=== PATIENT | male | born 1995 | race Caucasian/White ===

== ENCOUNTER 2017-11-11 19:37 | Inpatient (IN) ==
[2017-11-11] MEDS ORDERED: Naloxone 0.4 MG/ML INJ IVP PRN (22:27)
[2017-11-11] MEDS ORDERED: Acetaminophen 325 MG TABLET PO PRN (22:27)
--- NOTE | 2017-11-11 22:32 | Internal Med History&Physical ---
Date of Encounter: 11/11/17 Time of Encounter: 22:30 Internal Medicine - H&P: HPI Chief complaint: Low hemoglobin Admitted From: Direct Admit Plans for Post Hospital Care: Home History of present illness: Mr. Duncan is a 22 year old male with history of bipolar disorder sent from [facility] with hemoglobin of 5.1 on 2 sets of blood work that were done today. He was getting work up by his PCP to get lithium levels and had a CBC done with it which showed the low hgb. Patient has no complaints of bleeding. Has no previous labs to compare to. He does report that he has been weak and his mother has noticed that he is easily fatigued. Denies fever, chills , nausea, vomiting, headache, blurry vision, chest pain, shortness breath, abdominal pain, diarrhea, constipation, urinary symptoms, or neurological symptoms Past Med Surg Social Fam HX - Past Medical History Medical history: no medical history Psychiatric history: anxiety, depression - Past Surgical History Surgical History: no surgical history - Social History Smoking Status: Never smoker Smokeless Tobacco Status: No Alcohol use: none Drug use: none - Family History Mother Living Status: Still Living Hx Family Cardiac Disorders: No Hx Family Respiratory Disorders: No Hx Family Cancer: No Hx Family GI Disorders: No Hx Family Genitourinary Disorders: No Hx Family Endocrine Disorder: No Hx Family Musculoskeletal Disorders: No Hx Family Neuromuscular Disorders: No Hx Family Neurologic Disorders: No Hx Family HEENT Disorders: No Hx Family Autoimmune Disorders: No Hx Family Reproductive Disorders: No Hx Family Psychosocial Disorders: No Hx Family Medical Disorders: No Father Living Status: Still Living Hx Family Cardiac Disorders: No Hx Family Respiratory Disorders: No Hx Family Cancer: No Hx Family GI Disorders: No Hx Family Genitourinary Disorders: No Hx Family Endocrine Disorder: No Hx Family Musculoskeletal Disorders: No Hx Family Neuromuscular Disorders: No Hx Family Neurologic Disorders: No Hx Family HEENT Disorders: No Hx Family Autoimmune Disorders: No Hx Family Reproductive Disorders: No Hx Family Psychosocial Disorders: No Hx Family Medical Disorders: No Internal Medicine - H&P: Meds [place] Carbonate 300 mg PO BID 11/11/17 [History] Quetiapine Fumarate [SEROquel] 100 mg PO HS 11/11/17 [History] Wellbutrin Xl 150 mg PO DAILY 11/11/17 [History] 3 Allergy/AdvReac Type Severity Reaction Status Date / Time No Known Allergies Allergy Verified 11/11/17 17:24 All Systems PM: A 10-system review of systems was performed and is negative for pertinent findings except as documented above in the HPI. Review of systems: All systems reviewed are negative except for as mentioned above - Constitutional Exam: GEN: NAD HEENT: AT, NC, No cyanosis, oral mucosa is moist, No JVD Lymphatics: No lymphadenoapthy Eyes: Extrocular muscles intact, anicteric CVS:RRR. S1, S2, No m/r/g RESP: CTAB ABD: Soft, NT, ND, +BS EXT: No edema, No rashes, 2+ DP NEURO: Nonfocal, CN II-XII intact, No focal motor or sensory deficits Psych: Cooperative, Not anxious or depressed - Assessment and plan (1) Anemia Current Visit: No Status: Acute Assessment and plan: Microcytic anemia likely iron deficiency. We will check iron studies including iron levels, ferritin, B12, folate, haptoglobin, LDH levels. We will transfuse 2 units now PRBCs. Will likely need IV iron while admitted here. No need to repeat blood work here as he has had 2 sets of blood work earlier in the day that were consistent with hemoglobin less than 6. We will check PT and INR as those were not checked. He has normal platelets. FOBT was negative. He may eventually need to have a colonoscopy +/- EGD but this can be done in the outpatient setting. Patient is hemodynamically stable. Qualifiers: Anemia type: unspecified type Qualified Code(s): D64.9 - Anemia, unspecified (2) Bipolar disorder Current Visit: Yes Status: Acute Assessment and plan: Resume home psych meds Qualifiers: Active/Remission status: currently active Current bipolar episode type: mixed Current episode severity: unspecified Qualified Code(s): F31.60 - Bipolar disorder, current episode mixed, unspecified (3) DVT prophylaxis Current Visit: Yes Status: Acute Assessment and plan: SCDs - Time Spent With Patient Total time spent is greater than 50% in coordination of care (as documented) at patient's floor/unit and/or counseling patient:
[2017-11-11 22:44] LABS: Prothrombin Time 11.2 Seconds (9.4-12.1)
[2017-11-11 22:58] LABS: Ferritin < 8 ng/ml (20-250); Iron < 10 mcg/dL (65-175); Lactate Dehydrogenase 125 Units/L (140-271); Transferrin 269 mg/dL (203-362)
[2017-11-11 23:23] LABS: Vitamin B12 884 pg/mL (250-1100)
[2017-11-11 23:29] LABS: Folate > 22.3 ng/mL (3.0-16.0)
[2017-11-11] MEDS ORDERED: 0.9 % Sodium Chloride 250 ML ONE (23:38)
[2017-11-12] MEDS ORDERED: Iron Sucrose Complex 400 MG in 0.9 % Sodium Chloride 250 ML IVPB ONE (00:35)
[2017-11-12 06:37] LABS: Basophils % 0.7 %; Eosinophils # 0.1 K/mcL (0.0-0.6); Eosinophils % 1.7 %; Hematocrit 21.6 % (37.5-50.1); Immature Granulocytes % 0.4 % (0-4); Lymphocytes # 1.2 K/mcL (0.6-4.6); Lymphocytes % 21.6 %; Mean Corpuscular HGB Conc 27.8 g/dL (31.6-35.5); Mean Corpuscular Hemoglobin 17.6 pg (28.0-33.3); Mean Corpuscular Volume 63.5 fL (83.0-100.0); Mean Platelet Volume 12.1 fL (9.4-12.4); Monocytes # 0.4 K/mcL (0.0-1.3); Monocytes % 6.9 %; Neutrophils # 3.7 K/mcL (1.6-8.9); Platelet Count 244 K/mcL (140-400); Red Cell Distribution Width 18.2 % (11.5-14.5); Segmented Neutrophils % 68.7 %
[2017-11-12 06:52] LABS: BUN/Creatinine Ratio 12 (6-26); Blood Urea Nitrogen 13 mg/dL (6-20); Carbon Dioxide 25 mEq/L (23-29); Chloride 111 mEq/L (98-107); Glucose 109 mg/dL (70-105); Magnesium 2.2 mg/dL (1.6-2.6); Osmolality,Calculated 295 (280-300); Potassium 4.5 mEq/L (3.5-5.1); Sodium 142 mEq/L (136-145); eGFR For African Americans > 60 (> 60); eGFR For Non-African Americans > 60 (> 60)
[2017-11-12 07:12] LABS: Anisocytosis 2+ (Not Present)
[2017-11-12 07:13] LABS: Hypochromasia Present (Not Present); Microcytosis Present (Not Present); Platelet Estimate Normal (Normal)
[2017-11-12] MEDS ORDERED: 0.9 % Sodium Chloride 250 ML ONE (08:30)
[2017-11-12] MEDS: Lithium Carbonate 300 MG CAPSULE PO SCH ×2 (08:52→20:16)
[2017-11-12] MEDS: BuPROPion XL (24 HR) 150 MG TABLET PO SCH (08:52)
[2017-11-12 13:26] LABS: Hematocrit 26.6 % (37.5-50.1)
[2017-11-12 13:27] LABS: Hemoglobin 7.6 g/dL (12.9-16.9)
--- NOTE | 2017-11-12 14:24 | Internal Med Progress Note ---
Date of Encounter: 11/12/17 Time of Encounter: 09:25 - Assessment and plan (1) Anemia Current Visit: Yes Status: Acute Assessment and plan: Acute iron deficiency anemia. Initial Hg 6.0. Pt transfused with 2 units packed red blood cells. Hemoglobin rises to 7.6. Iron < 10, % sat not performed, Ferritin < 8. He should also received iron sucrose 400 mg IV 1 Will monitor overnight, and if patient remains stable will be discharged in the morning. Patient reports he normally eats a very healthy diet, no history of anemia in the past. Recommend pt follow with Heme/Onc after discharge for continued evaluation. Qualifiers: Anemia type: unspecified type Qualified Code(s): D64.9 - Anemia, unspecified (2) DVT prophylaxis Current Visit: Yes Status: Acute Assessment and plan: SCDs. Pt is ambulatory. (3) Bipolar disorder Current Visit: Yes Status: Acute Assessment and plan: Continue Seroquel, lithium, and Wellbutrin. Pt is stable. Qualifiers: Active/Remission status: currently active Current bipolar episode type: mixed Current episode severity: unspecified Qualified Code(s): F31.60 - Bipolar disorder, current episode mixed, unspecified - Time Spent With Patient Total time spent is greater than 50% in coordination of care (as documented) at patient's floor/unit and/or counseling patient: - Subjective Interval history: Pt was seen and assessed at bedside at 0925 a.m. He is alert, awake, pleasant. He denies abdominal pain, n/v/d. He denies headache and states that he has been fatigued and SOB the last week or so. He reports "I knew something was wrong with my belly for the last year." Pt reports that his PCP recommended that he not consume gluten and he reports that he does not, but he is eating a sandwich in the room during my exam. - Constitutional Vitals: Temp Pulse Resp BP Pulse Ox 98.1 F 79 15 128/50 97 11/12/17 11:39 11/12/17 11:39 11/12/17 11:39 11/12/17 11:39 11/12/17 11:39 General appearance: Present: cooperative, A&O X 3, pleasant, no acute distress, answers questions appropriately - Head Head exam: Present: atraumatic, normal inspection, normocephalic - Eye Eye exam: Present: normal appearance, conjuntiva pink, sclera anicteric - Neck Neck exam general surgery: Present: supple, trachea midline. Absent: lymphadenopathy - Respiratory Respiratory exam: Present: CTAB. Absent: accessory muscle use, rales, rhonchi, wheezes - Cardiovascular Cardiovascular exam: Present: RRR, +S1, +S2. Absent: diastolic murmur, gallop, rubs, systolic murmur - GI/Abdominal GI/Abdominal exam: Present: normal bowel sounds, soft. Absent: distended, hepatomegaly, tenderness - Extremities Exam Extremities exam: Present: normal capillary refill, normal inspection, warm, radial pulses palpable and symmetrical. Absent: calf tenderness, cyanotic, pedal edema, tenderness - Neurological Exam Neurological exam: Present: alert, oriented X3, no focal deficits. Absent: facial droop, speech deficit - Skin Skin exam: Present: dry, intact, normal color, warm. Absent: rash Internal Medicine: Result - Labs CBC & Chem 7: 11/12/17 13:06 11/12/17 06:10 Labs: Short CBC 11/12/17 11/12/17 Range/Units 06:10 13:06 WBC 5.4 (4.3-11.1) K/mcL Hgb 6.0 L* 7.6 L D (12.9-16.9) g/dL Hct 21.6 L 26.6 L (37.5-50.1) % Plt Count 244 (140-400) K/mcL Neutrophils # 3.7 (1.6-8.9) K/mcL BMP 11/12/17 06:10 Sodium 142 Potassium 4.5 Chloride 111 H Carbon Dioxide 25 BUN 13 Creatinine 1.07 Glucose 109 H Calcium 9.0 - ABG Interpretation ABG results: PT/INR, D-dimer PT 11.2 Seconds (9.4-12.1) 11/11/17 22:26 Consult Discharge Plan - Plan Referrals: Elvi Vazquez [Primary Care Provider] -
[2017-11-12 18:58] LABS: Hematocrit 26.9 % (37.5-50.1); Hemoglobin 7.7 g/dL (12.9-16.9)
[2017-11-13 01:23] LABS: Mean Corpuscular Volume 65.2 fL (83.0-100.0)
[2017-11-13 01:24] LABS: Hematocrit 25.3 % (37.5-50.1); Hemoglobin 7.4 g/dL (12.9-16.9); Mean Corpuscular HGB Conc 29.2 g/dL (31.6-35.5); Mean Corpuscular Hemoglobin 19.1 pg (28.0-33.3); Neutrophils # 4.9 K/mcL (1.6-8.9); Platelet Count 245 K/mcL (140-400); Red Blood Count 3.88 M/mcL (4.19-5.50); Red Cell Distribution Width 20.6 % (11.5-14.5)
[2017-11-13 01:41] LABS: BUN/Creatinine Ratio 13 (6-26); Blood Urea Nitrogen 14 mg/dL (6-20); Calcium 9.2 mg/dL (8.6-10.3); Carbon Dioxide 25 mEq/L (23-29); Chloride 109 mEq/L (98-107); Glucose 109 mg/dL (70-105); Osmolality,Calculated 291 (280-300); Potassium 3.8 mEq/L (3.5-5.1); Sodium 140 mEq/L (136-145); eGFR For African Americans > 60 (> 60); eGFR For Non-African Americans > 60 (> 60)
[2017-11-13 01:56] LABS: Eosinophils # 0.3 K/mcL (0.0-0.6); Monocytes # 0.5 K/mcL (0.0-1.3)
[2017-11-13 01:58] LABS: Anisocytosis 2+ (Not Present); Hypochromasia Present (Not Present); Microcytosis Present (Not Present); Platelet Estimate Normal (Normal); Poikilocytosis 1+ (Not Present); Polychromasia 1+ (Not Present)
[2017-11-13 06:38] LABS: Hemoglobin 7.8 g/dL (12.9-16.9)
[2017-11-13 06:40] LABS: Hematocrit 26.7 % (37.5-50.1)
[2017-11-13] MEDS: Lithium Carbonate 300 MG CAPSULE PO SCH ×2 (08:37→21:24)
[2017-11-13] MEDS: BuPROPion XL (24 HR) 150 MG TABLET PO SCH (08:37)
[2017-11-13] MEDS ORDERED: 0.9 % Sodium Chloride 250 ML ONE ×2 (09:22→11:58)
--- NOTE | 2017-11-13 12:37 | Internal Med Progress Note ---
Date of Encounter: 11/13/17 Time of Encounter: 09:25 - Assessment and plan (1) Anemia Current Visit: Yes Status: Acute Assessment and plan: Hemoglobin 7.6. Transfuse 2 units PRBCs today. Consulted Heme/Onc, will see pt. I appreciate their recommendation and consultation. Heme/onc recommended GI consultation. GI will see pt tomorrow and discuss EGD and colonoscopy. Continue to monitor H & H. Qualifiers: Anemia type: unspecified type Qualified Code(s): D64.9 - Anemia, unspecified (2) Bipolar disorder Current Visit: Yes Status: Acute Assessment and plan: Chronic. Stable. Continue Seroquel, lithium, and Wellbutrin. Qualifiers: Active/Remission status: currently active Current bipolar episode type: mixed Current episode severity: unspecified Qualified Code(s): F31.60 - Bipolar disorder, current episode mixed, unspecified (3) DVT prophylaxis Current Visit: Yes Status: Acute Assessment and plan: SCDs ordered. Pt is ambulatory in the room. - Time Spent With Patient Total time spent is greater than 50% in coordination of care (as documented) at patient's floor/unit and/or counseling patient: less than 15 minutes - Subjective Interval history: Pt was seen and assessed at bedside at 0925 a.m. He is alert, awake, pleasant. He continues to deny nausea, vomiting, diarrhea. Denies headache, blurred vision , chest pain, or SOB. Mom at bedside, questions answered. - Constitutional Vitals: Temp Pulse Resp BP Pulse Ox 98.6 F 68 16 120/54 99 11/13/17 12:19 11/13/17 12:19 11/13/17 12:19 11/13/17 12:19 11/13/17 12:19 General appearance: Present: cooperative, A&O X 3, pleasant, no acute distress, answers questions appropriately - Head Head exam: Present: atraumatic, normal inspection, normocephalic - Eye Eye exam: Present: normal appearance, conjuntiva pink, sclera anicteric - Neck Neck exam general surgery: Present: normal inspection, supple, trachea midline. Absent: lymphadenopathy, tenderness - Respiratory Respiratory exam: Present: CTAB. Absent: accessory muscle use, chest wall tenderness, decreased breath sounds, rales, respiratory distress, rhonchi, wheezes - Cardiovascular Cardiovascular exam: Present: RRR, +S1, +S2. Absent: diastolic murmur, gallop, rubs, systolic murmur - GI/Abdominal GI/Abdominal exam: Present: normal bowel sounds, soft. Absent: distended, hepatomegaly, tenderness - Extremities Exam Extremities exam: Present: normal capillary refill, normal inspection, warm, radial pulses palpable and symmetrical. Absent: calf tenderness, cyanotic, pedal edema, tenderness - Neurological Exam Neurological exam: Present: alert, oriented X3, no focal deficits. Absent: facial droop, speech deficit - Skin Skin exam: Present: dry, intact, normal color, warm. Absent: rash Internal Medicine: Result - Labs CBC & Chem 7: 11/13/17 06:26 11/13/17 00:25 Labs: Short CBC 11/12/17 11/12/17 11/13/17 Range/Units 13:06 18:39 00:25 WBC 7.7 (4.3-11.1) K/mcL Hgb 7.6 L D 7.7 L 7.4 L (12.9-16.9) g/dL Hct 26.6 L 26.9 L 25.3 L (37.5-50.1) % Plt Count 245 (140-400) K/mcL Neutrophils # 4.9 (1.6-8.9) K/mcL 11/13/17 Range/Units 06:26 WBC (4.3-11.1) K/mcL Hgb 7.8 L (12.9-16.9) g/dL Hct 26.7 L (37.5-50.1) % Plt Count (140-400) K/mcL Neutrophils # (1.6-8.9) K/mcL BMP 11/13/17 00:25 Sodium 140 Potassium 3.8 Chloride 109 H Carbon Dioxide 25 BUN 14 Creatinine 1.10 Glucose 109 H Calcium 9.2 - ABG Interpretation ABG results: PT/INR, D-dimer PT 11.2 Seconds (9.4-12.1) 11/11/17 22:26 Consult Discharge Plan - Plan Referrals: Elvi Vazquez [Primary Care Provider] -
[2017-11-13] MEDS ORDERED: SODIUM CHLORIDE/NAHCO3/KCL/PEG 4,000 ML SOLN.RECON PO ONE (17:00)
--- NOTE | 2017-11-14 09:53 | Oncology Inp Consult Note ---
Date of Encounter: 11/14/17 Time of Encounter: 09:51 Assessment and Plan (1) Anemia Status: Acute Assessment and plan: Iron deficiency Anemia, etiology unclear. S/p 4 units PRBC and 400 mg venofer. EGD and colonoscopy with benign findings. Pathology pending. GI recommending capsule endoscopy. Hgb stable at 10 today. Microcytic and Hypochromic on presentation, consistent with DALE. B12 and folate are replete. LDH low and haptoglobin normal. Tissue transglutaminase Atb, IgA ordered to screen for celiac disease, results pending. No sign of acute blood loss, hgb stable, patient planned for discharge today with further follow up on outpatient basis. Patient's mother was given an appointment card with f/u with Dr. Duncan with further laboratory monitoring and future iron infusions if needed. She understands s/s of bleeding to watch for and to present to ER with acute bleeding. She is to call the office with any further questions or concerns in meantime. The above plan was discussed with patient and patients parents at bedside in detail, verbalized understanding. Qualifiers: Anemia type: iron deficiency Iron deficiency anemia type: other iron deficiency Qualified Code(s): D50.8 - Other iron deficiency anemias - Data of Consult Patient: new to practice Consult date: 11/14/17 Requesting Physician: Brian Finn CNP Primary Care Provider: Elvi Vazquez - Consult Narrative Reason for consult: DALE History of present illness: Mr. Duncan is a 22 year old male with pas medical history significant for bipolar disorder, presented to [facility] on 11/11/2017 with hemoglobin of 5.1, discovered on routine lab work while checking patients lithium levels. He was also found to be severely iron deficient. He has received a total of 4 units PRBC and 400 mg venofer during his stay. Patient and patients mother report that patient has been noticeably weak and fatigued recently. Denies any s/s of recent bleeding such as hematochezia, hematemesis or melena. Patients mother does report a history of GI symptoms described as IBS like symptoms, for which patient has been trying to cut down on gluten intake believing that this has an association to his symptoms. Stool occult blood negative. EGD revealed chronic gastritis, pathology from several biopsies pending. Colonoscopy revealed internal hemorrhoids. Past Med Surg Social Fam HX - Past Medical History Medical history: no medical history Psychiatric history: anxiety, depression - Past Surgical History Surgical History: no surgical history - Social History Smoking Status: Never smoker Smokeless Tobacco Status: No Alcohol use: none Drug use: none - Family History Mother Living Status: Still Living Hx Family Cardiac Disorders: No Hx Family Respiratory Disorders: No Hx Family Cancer: No Hx Family GI Disorders: No Hx Family Genitourinary Disorders: No Hx Family Endocrine Disorder: No Hx Family Musculoskeletal Disorders: No Hx Family Neuromuscular Disorders: No Hx Family Neurologic Disorders: No Hx Family HEENT Disorders: No Hx Family Autoimmune Disorders: No Hx Family Reproductive Disorders: No Hx Family Psychosocial Disorders: No Hx Family Medical Disorders: No Father Living Status: Still Living Hx Family Cardiac Disorders: No Hx Family Respiratory Disorders: No Hx Family Cancer: No Hx Family GI Disorders: No Hx Family Genitourinary Disorders: No Hx Family Endocrine Disorder: No Hx Family Musculoskeletal Disorders: No Hx Family Neuromuscular Disorders: No Hx Family Neurologic Disorders: No Hx Family HEENT Disorders: No Hx Family Autoimmune Disorders: No Hx Family Reproductive Disorders: No Hx Family Psychosocial Disorders: No Hx Family Medical Disorders: No Medications and Allergies BuPROPion XL (24 HR) [Wellbutrin Xl] 150 mg PO DAILY 11/11/17 [History] [place] Carbonate 300 mg PO BID 11/11/17 [History] Quetiapine Fumarate [Seroquel] 100 mg PO HS 11/11/17 [History] Ferrous Sulfate 324 mg PO BID #60 tablet.dr 11/14/17 [Rx] Omeprazole [PriLOSEC] 40 mg PO DAILY #30 cap 11/14/17 [Rx] 3 Allergy/AdvReac Type Severity Reaction Status Date / Time No Known Allergies Allergy Verified 11/12/17 14:02 Constitutional: Present: fatigue, weakness. Absent: anorexia, chills, fever(s) , weight loss Eyes: Absent: change in vision Nose, mouth and throat: Absent: dysphagia Cardiovascular: Absent: chest pain, irregular heart rhythm Respiratory: Absent: cough, dyspnea, hemoptysis Gastrointestinal: Present: as per HPI. Absent: change in bowel habits, hematemesis, hematochezia, melena, nausea, vomiting Additional comments: denies dysuria of hematuria Musculoskeletal: Absent: abnormal gait, numbness, tingling Integumentary: Absent: wounds Neurological: Absent: focal weakness, frequent falls Psychiatric: Present: as per HPI Hematologic/Lymphatic: Present: as per HPI Oncology - Exam - Constitutional Vitals: Temp Pulse Resp BP Pulse Ox 98.5 F 63 18 123/72 100 11/14/17 07:02 11/14/17 07:02 11/14/17 07:02 11/14/17 07:02 11/14/17 07:02 General appearance: cooperative, no acute distress, no febrile - Head Head exam: Present: atraumatic - ENT ENT exam: Present: mucous membranes moist - Respiratory Respiratory exam: Present: CTAB. Absent: respiratory distress - Cardiovascular Cardiovascular exam: Present: RRR, +S1, +S2 - Extremities Exam Extremities exam: Present: normal inspection. Absent: calf tenderness - Neurological Exam Neurological exam: Present: alert, oriented X3, no focal deficits, strengths equal and symetr throughout - Psychiatric Psychiatric exam: Present: normal affect, normal mood - Skin Skin exam: Present: dry, intact, normal color, warm Consult Discharge Plan - Plan Instructions: Gluten-Free Diet (DC), Iron Rich Diet (DC), Iron Deficiency Anemia (DC) Referrals: Elvi Vazquez [Primary Care Provider] - (He is call for follow-up appointment within 1 week) Yair Duncan [Non-Partnered Physician] - 11/27/17 9:00 am () Katerina Samaniego MD [Partnered Physician] - (Please call the office if you have not heard from them within 2-3 weeks for capsule study) Prescriptions: Ferrous Sulfate 324 mg PO BID #60 tablet. Omeprazole [PriLOSEC] 40 mg PO DAILY #30 cap
[2017-11-14] MEDS: BuPROPion XL (24 HR) 150 MG TABLET PO SCH (09:56)
[2017-11-14] MEDS: Lithium Carbonate 300 MG CAPSULE PO SCH (09:56)
[2017-11-14 10:12] LABS: Hematocrit 33.9 % (37.5-50.1)
--- NOTE | 2017-11-14 11:35 | Gastroenterology Consult Note ---
<Hung Nur - Last Filed: 11/14/17 11:33> Date of Encounter: 11/14/17 Time of Encounter: 10:55 - Assessment and plan (1) Anemia Status: Acute Assessment and plan: Hgb initially 5.1 with iron <10 and ferritin <8. Fecal occult blood test was negative. He was given one unit of PRBC and transferred here. On arrival here his Hgb was 6. He has received 3 more units PRBC. Continue to monitor CBC and transfuse PRBC as needed. Plan for EGD and colonoscopy today. Keep patient NPO. If EGD and colonoscopy of negative consider capsule endoscopy as outpatient. Qualifiers: Anemia type: unspecified type Qualified Code(s): D64.9 - Anemia, unspecified - Time Spent With Patient Total time spent is greater than 50% in coordination of care (as documented) at patient's floor/unit and/or counseling patient: GI History of Present Illness - Data of Consult Patient: new to practice Consult date: 11/14/17 Requesting Physician: Brian Finn CNP - Consult Narrative Reason for consult: DALE History of present illness: Mr. Duncan is a 22 year old male with PMHx of of bipolar disorder sent from [facility] with hemoglobin of 5.1 on 2 sets of blood work. He reports he has been fatigued and SOB the last week or so. He denies fever, chills, chest pain, shortness of breath, abdominal pain, nausea, vomiting, diarrhea, constipation, melena, or hematochezia. Hgb initially 5.1 with iron < 10 and ferritin <8. Fecal occult blood test was negative. He was given one unit of PRBC and transferred here. On arrival here his Hgb was 6. He has received 3 more units PRBC. We have been consulted to evaluated his anemia. Procedures: None NSAIDs: None Anticoagulation: None Past Med Surg Social Fam HX - Past Medical History Medical history: no medical history Psychiatric history: anxiety, depression - Past Surgical History Surgical History: no surgical history - Social History Smoking Status: Never smoker Smokeless Tobacco Status: No Alcohol use: none Drug use: none - Family History Mother Living Status: Still Living Hx Family Cardiac Disorders: No Hx Family Respiratory Disorders: No Hx Family Cancer: No Hx Family GI Disorders: No Hx Family Genitourinary Disorders: No Hx Family Endocrine Disorder: No Hx Family Musculoskeletal Disorders: No Hx Family Neuromuscular Disorders: No Hx Family Neurologic Disorders: No Hx Family HEENT Disorders: No Hx Family Autoimmune Disorders: No Hx Family Reproductive Disorders: No Hx Family Psychosocial Disorders: No Hx Family Medical Disorders: No Father Living Status: Still Living Hx Family Cardiac Disorders: No Hx Family Respiratory Disorders: No Hx Family Cancer: No Hx Family GI Disorders: No Hx Family Genitourinary Disorders: No Hx Family Endocrine Disorder: No Hx Family Musculoskeletal Disorders: No Hx Family Neuromuscular Disorders: No Hx Family Neurologic Disorders: No Hx Family HEENT Disorders: No Hx Family Autoimmune Disorders: No Hx Family Reproductive Disorders: No Hx Family Psychosocial Disorders: No Hx Family Medical Disorders: No - Gastrointestinal Gastrointestinal: Present: as per HPI - Constitutional Constitutional: as per HPI - EENT Eyes: as per HPI Ears: Present: as per HPI Nose, mouth and throat: Present: as per HPI - Cardiovascular Cardiovascular ROS: Present: as per HPI - Respiratory Respiratory IM: Present: as per HPI - Genitourinary Genitourinary: Absent: change in color, Urinary frequency - Neurological ROS Neurological GI: Present: as per HPI - Hematologic/Lymphatic Hematologic/Lymphatic pediatric: Present: as per HPI - Musculoskeletal Musculoskeletal ROS GI: Present: as per HPI - Integumentary Integumentary GI: Present: as per HPI - Psychiatric ROS Psychiatric GI: Present: as per HPI - Endocrine Endocrine IM: Present: as per HPI - Constitutional Vitals: Temp Pulse Resp BP Pulse Ox 98.1 F 54 20 121/57 99 11/14/17 11:11 11/14/17 11:11 11/14/17 11:11 11/14/17 11:11 11/14/17 11:11 General appearance: Present: cooperative, A&O X 3, no acute distress, answers questions appropriately - Head Head exam: Present: atraumatic, normocephalic - Eye Eye exam: Present: normal appearance, sclera anicteric - ENT ENT exam: Present: mucous membranes dry - Neck Neck exam general surgery: Present: normal inspection, trachea midline - Respiratory Respiratory exam: Present: CTAB. Absent: rales, rhonchi, wheezes - Cardiovascular Cardiovascular exam: Present: RRR, +S1, +S2 - GI/Abdominal GI/Abdominal exam: Present: soft, no peritoneal signs. Absent: distended, firm , guarding, tenderness - Rectal Rectal exam: Present: deferred - Extremities Exam Extremities exam: Present: warm - Neurological Exam Neurological exam: Present: no focal deficits - Psychiatric Psychiatric exam: Present: normal affect, normal mood - Skin Skin exam: Present: dry, intact, normal color, warm Results - Labs CBC & Chem 7: 11/14/17 09:45 11/13/17 00:25 Labs: Last Result Calcium 9.2 mg/dL (8.6-10.3) 11/13/17 00:25 Iron < 10 mcg/dL (65-175) L 11/11/17 22:12 % Saturation TNP 11/11/17 22:12 Transferrin 269 mg/dL (203-362) 11/11/17 22:12 Ferritin < 8 ng/ml (20-250) L 11/11/17 22:12 Vitamin B12 884 pg/mL (250-1100) 11/11/17 22:25 Folate > 22.3 ng/mL (3.0-16.0) H 11/11/17 22:25 Entire Visit Hgb 10.0 g/dL (12.9-16.9) L D 11/14/17 09:45 Hct 33.9 % (37.5-50.1) L 11/14/17 09:45 PT 11.2 Seconds (9.4-12.1) 11/11/17 22:26 Ferritin < 8 ng/ml (20-250) L 11/11/17 22:12 Folate > 22.3 ng/mL (3.0-16.0) H 11/11/17 22:25 - ABG ABG results: PT/INR, D-dimer PT 11.2 Seconds (9.4-12.1) 11/11/17 22:26 Consult Discharge Plan - Plan Instructions: Gluten-Free Diet (DC), Iron Rich Diet (DC), Iron Deficiency Anemia (DC) Referrals: Elvi Vazquez [Primary Care Provider] - (He is call for follow-up appointment within 1 week) Yair Duncan [Non-Partnered Physician] - 11/27/17 9:00 am () Katerina Samaniego MD [Partnered Physician] - (Please call the office if you have not heard from them within 2-3 weeks for capsule study) Prescriptions: Ferrous Sulfate 324 mg PO BID #60 tablet. Omeprazole [PriLOSEC] 40 mg PO DAILY #30 cap <Juanito Martinez - Last Filed: 11/15/17 10:36> Date of Encounter: 11/14/17 - Time Spent With Patient Total time spent is greater than 50% in coordination of care (as documented) at patient's floor/unit and/or counseling patient: GI History of Present Illness - Data of Consult Requesting Physician: Brian Finn CNP - Consult Narrative History of present illness: Mr. Duncan is a 22 year old male - Constitutional Vitals: Temp Pulse Resp BP Pulse Ox 98.2 F 81 18 113/63 97 11/14/17 16:35 11/14/17 16:35 11/14/17 16:35 11/14/17 16:35 11/14/17 16:35 Results - Labs CBC & Chem 7: 11/14/17 17:00 11/13/17 00:25 Labs: Last Result Calcium 9.2 mg/dL (8.6-10.3) 11/13/17 00:25 Iron < 10 mcg/dL (65-175) L 11/11/17 22:12 % Saturation TNP 11/11/17 22:12 Transferrin 269 mg/dL (203-362) 11/11/17 22:12 Ferritin < 8 ng/ml (20-250) L 11/11/17 22:12 Vitamin B12 884 pg/mL (250-1100) 11/11/17 22:25 Folate > 22.3 ng/mL (3.0-16.0) H 11/11/17 22:25 Entire Visit Hgb 10.0 g/dL (12.9-16.9) L 11/14/17 17:00 Hct 33.2 % (37.5-50.1) L 11/14/17 17:00 Haptoglobin 124 mg/dL (30-200) 11/11/17 22:12 PT 11.2 Seconds (9.4-12.1) 11/11/17 22:26 Ferritin < 8 ng/ml (20-250) L 11/11/17 22:12 Folate > 22.3 ng/mL (3.0-16.0) H 11/11/17 22:25 - ABG ABG results: PT/INR, D-dimer PT 11.2 Seconds (9.4-12.1) 11/11/17 22:26 - Attending Attestation 22 year old white male who presents with iron deficiency anemia. No gross bleeding. On speaking with his parents it appears he has issues with wheat and it causes him to have diarrhea - he was apparently was compliant with his diet in the past but, lately per parents he is not so. They specifically that I not test for Celiac disease as it would add to the hospital bill and increase their financial burden. I discussed Celiac Sprue with them along with attendant complications of the disease and they said he would go back to complying with the diet. They also did not want me to do a capsule endoscopy. Thank you for the consultation. I have personally performed a face to face evaluation on this patient. I have reviewed and agree with the care plan. History and Exam by me shows:
[2017-11-14] MEDS ORDERED: Propofol 500 MG/50 ML INFUS..BTL ONE (11:47)
[2017-11-14] MEDS ORDERED: Lidocaine -MPF 2% 2 ML VIAL ONE (11:47)
--- NOTE | 2017-11-14 12:44 | Anesthesia Evaluation PreOp ---
Date of Encounter: 11/14/17 Time of Encounter: 12:42 - Past History Planned Operation: EGD/colonoscopy (GI bleed) Cardiac History: Denies any Significant Hx Pulmonary History: Denies Any Significant HX [employer] History: Other (Bipolar) Other Medical History: Denies Any Significant HX Anesthesia History: No Prior Anesthetic Complications Alcohol Use: none Drug use: none Medications and Allergies BuPROPion XL (24 HR) [Wellbutrin XL] 150 mg PO DAILY 11/11/17 [History] [place] Carbonate 300 mg PO BID 11/11/17 [History] Quetiapine Fumarate [SEROquel] 100 mg PO HS 11/11/17 [History] 3 Allergy/AdvReac Type Severity Reaction Status Date / Time No Known Allergies Allergy Verified 11/12/17 14:02 - Meds/Allergy Pre-op Review Medications Reviewed: Yes Allergies Reviewed: Yes Beta Blockers on Current Med List: No Anesthesia Results - Labs 11/14/17 09:45 11/13/17 00:25 Anesthesia Exam Last Vital Signs Temp 98.1 F 11/14/17 11:11 Pulse 54 11/14/17 11:11 Resp 20 11/14/17 11:11 BP 121/57 11/14/17 11:11 Pulse Ox 99 11/14/17 11:11 Weight: 63 kg NPO (# of Hours): > 8 hrs - HEENT Pupil (Motor): Pupils equal, EOMI Mallampati: III Teeth: Missing, Prosthesis Denture Type: Upper: Partial Oral Opening: Greater than 3 - [employer] LOC: Oriented - Cardiac Rhythm: Regular Murmur: None - Pulmonary Breath Sounds: bilateral Clear Respiratory Effort: Symmetrical Anesthesia Assess/Plan ASA Score: 2 Modified [place] Scale for Level of Consciousness: Cooperative, oriented, and tranquil Anesthetic Plan: MAC Monitoring Plan: Standard Monitors Recovery Plan: PACU
--- NOTE | 2017-11-14 13:35 | Internal Med Progress Note ---
Date of Encounter: 11/14/17 Time of Encounter: 13:34 - Assessment and plan (1) Anemia Current Visit: Yes Status: Acute Assessment and plan: Routine, outpatient lab work showed Hgb initially 5.1; received 1 unit PRBC prior to arrival. Hgb 6 on admission; received a total of 3 units PRBC at [facility]. Occult stool negative. Iron less than 10 and ferritin less than 8. Repeat Hgb 10; denied hematochezia, no melena. 11/14/17 EGD and colonoscopy with gastritis, no evidence of bleeding. Evaluated by Oncology who ordered one time dose IV iron. Hgb 10 at discharge. Will need outpatient capsule endoscopy and Oncology follow-up. Qualifiers: Anemia type: iron deficiency Iron deficiency anemia type: other iron deficiency Qualified Code(s): D50.8 - Other iron deficiency anemias (2) Bipolar disorder Current Visit: Yes Status: Acute Assessment and plan: Chronic. Stable. Continue Seroquel, lithium, and Wellbutrin. Qualifiers: Active/Remission status: currently active Current bipolar episode type: mixed Current episode severity: unspecified Qualified Code(s): F31.60 - Bipolar disorder, current episode mixed, unspecified (3) DVT prophylaxis Current Visit: Yes Status: Acute Assessment and plan: SCDs, ambulation - Time Spent With Patient Total time spent is greater than 50% in coordination of care (as documented) at patient's floor/unit and/or counseling patient: - Subjective Interval history: Seen and examined at bedside. Patient is new to me, information obtained from chart review and patient report. Says he feels overall better and would like to eat if possible. Denies hematochezia, no melena. No abdominal pain or shortness of breath. - Constitutional Vitals: Temp Pulse Resp BP Pulse Ox 98.1 F 54 20 121/57 99 11/14/17 11:11 11/14/17 11:11 11/14/17 11:11 11/14/17 11:11 11/14/17 11:11 General appearance: Present: cooperative, A&O X 3, pleasant, no acute distress, answers questions appropriately - Head Head exam: Present: atraumatic, normocephalic - Eye Eye exam: Present: PERRL, conjuntiva pink, sclera anicteric Pupils: Present: PERRL - Neck Neck exam general surgery: Present: supple, trachea midline. Absent: lymphadenopathy - Respiratory Respiratory exam: Present: CTAB. Absent: accessory muscle use, rales, rhonchi, wheezes - Cardiovascular Cardiovascular exam: Present: RRR, +S1, +S2. Absent: diastolic murmur, gallop, rubs, systolic murmur - GI/Abdominal GI/Abdominal exam: Present: normal bowel sounds, soft, no peritoneal signs. Absent: distended, tenderness - Extremities Exam Extremities exam: Present: warm, radial pulses palpable and symmetrical. Absent : calf tenderness, cyanotic, pedal edema - Neurological Exam Neurological exam: Present: CN II-XII intact, oriented X3, no focal deficits. Absent: pronater drift, facial droop, speech deficit - Skin Skin exam: Present: dry, intact Internal Medicine: Result - Labs CBC & Chem 7: 11/14/17 09:45 11/13/17 00:25 Labs: Short CBC 11/14/17 Range/Units 09:45 Hgb 10.0 L D (12.9-16.9) g/dL Hct 33.9 L (37.5-50.1) % - ABG Interpretation ABG results: PT/INR, D-dimer PT 11.2 Seconds (9.4-12.1) 11/11/17 22:26 Consult Discharge Plan - Plan Referrals: Elvi Vazquez [Primary Care Provider] -
--- NOTE | 2017-11-14 13:57 | Discharge Summary ---
- NOTES TO OUTPATIENT PROVIDER Notes to Outpatient Provider: Recommend repeat CBC within one week Orders not resulted at time of discharge: Pending orders 11/11/17 22:12 Haptoglobin Stat 11/14/17 13:12 Surgical Pathology [PTH] Routine 11/14/17 21:00 Hemoglobin and Hematocrit [HEME] Q12H Tissue Transglutaminase Ab,IgA Routine 11/15/17 04:00 Complete Blood [place] w/o Diff [HEME] [place] [address]11/16/17 04:00 Complete Blood Count w/o Diff [HEME] AM 39911/17/17 04:00 Complete Blood Count w/o Diff [HEME] AM 39911/18/17 04:00 Complete Blood Count w/o Diff [HEME] AM 39911/19/17 04:00 Complete Blood Count w/o Diff [HEME] AM 399 Date of Encounter: 11/14/17 Time of Encounter: 13:53 - Discharge Diagnosis (1) Anemia Priority: Primary Status: Acute Assessment and Plan: routine, outpatient lab work showed Hgb initially 5.1; received 1 unit PRBC prior to arrival. Hgb 6 on admission; received a total of 3 units PRBC at [facility] [place]. Occult stool negative. Iron less than 10 and ferritin less than 8. Repeat Hgb 10; denied hematochezia, no melena. 11/14/17 EGD and colonoscopy with gastritis, no evidence of bleeding. Evaluated by Oncology who ordered one time dose IV iron in noted concern for celiac disease. Hgb 10 at discharge. Continue oral iron supplementation, gluten-free diet. Will need outpatient capsule endoscopy and Oncology follow-up. Qualifiers: Anemia type: iron deficiency Iron deficiency anemia type: other iron deficiency Qualified Code(s): D50.8 - Other iron deficiency anemias (2) Bipolar disorder Priority: Primary Status: Acute Assessment and Plan: Chronic. Stable. Continue Seroquel, lithium, and Wellbutrin. Qualifiers: Active/Remission status: currently active Current bipolar episode type: mixed Current episode severity: unspecified Qualified Code(s): F31.60 - Bipolar disorder, current episode mixed, unspecified (3) Gastritis Priority: Primary Status: Acute Assessment and Plan: 11/14/2017 EGD with chronic gastritis. Add PPI. Follow up with GI outpatient Qualifiers: Gastritis type: unspecified gastritis Chronicity: chronic Gastritis bleeding: without bleeding Qualified Code(s): K29.50 - Unspecified chronic gastritis without bleeding Hospital course: See assessment and plan for hospital course Discharge discussed with: patient (Seen and examined at bedside. Patient is new to me, information obtained from chart review and patient report. Says he feels overall better and would like to eat if possible. Denies hematochezia, no melena. No abdominal pain or shortness of breath.) - Time Spent with Patient Total time spent providing and/or coordinating discharge services: Less than 30 minutes - Discharge Medications Prescriptions: Ferrous Sulfate 324 mg PO BID #60 tablet. Omeprazole [PriLOSEC] 40 mg PO DAILY #30 cap Home Medications: BuPROPion XL (24 HR) [Wellbutrin Xl] 150 mg PO DAILY 11/11/17 [History] [place] Carbonate 300 mg PO BID 11/11/17 [History] Quetiapine Fumarate [Seroquel] 100 mg PO HS 11/11/17 [History] Ferrous Sulfate 324 mg PO BID #60 tablet. 11/14/17 [Rx] Omeprazole [PriLOSEC] 40 mg PO DAILY #30 cap 11/14/17 [Rx] Allergies/Adverse Reactions: 3 Allergy/AdvReac Type Severity Reaction Status Date / Time No Known Allergies Allergy Verified 11/12/17 14:02 Date of admission: 11/11/17 20:18 Primary care physician: Elvi Vazquez Consults: 11/13/17 10:34 Consult to Oncology Hematology [CONS] Routine Consulting Provider: Oumou Owen Reason for Consult: DALE. Pt denies n/v/d, hematochezia, melena, hematemesis, abdominal pain. Pt has had 2 units of blood and iron infusion. Hgb 7.8 after 2 units. Pt will get 2 more units today. No prior history, pt was asymptomatic until about a week ago. Incidental finding when pt had routine lithium level was drawn. Time Notified: 10:37 Call Completed: Yes 11/13/17 10:46 Consult to Gastroenterology [CONS] Routine Consulting Provider: Gastroenterology Bhakti Reason for Consult: DALE. Pt denies n/v/d, melena, hematochezia, hematemesis. Guaiac in the ER negative. Heme/Onc following, recommend inpt GI workup. Discussed with Chandan Nur NP, by phone. Time Notified: 10:49 Call Completed: Yes Discharging clinician: Damari Kennedy Anticipated date of discharge: 11/14/17 - Constitutional Vitals: Temp Pulse Resp BP Pulse Ox 98.1 F 54 20 121/57 99 11/14/17 11:11 11/14/17 11:11 11/14/17 11:11 11/14/17 11:11 11/14/17 11:11 General appearance: Present: cooperative, A&O X 3, pleasant, no acute distress, answers questions appropriately - Head Head exam: Present: atraumatic, normocephalic - Eye Eye exam: Present: PERRL, conjuntiva pink, sclera anicteric Pupils: Present: PERRL - Neck Neck exam general surgery: Present: supple, trachea midline. Absent: lymphadenopathy - Respiratory Respiratory exam: Present: CTAB. Absent: accessory muscle use, rales, rhonchi, wheezes - Cardiovascular Cardiovascular exam: Present: RRR, +S1, +S2. Absent: diastolic murmur, gallop, rubs, systolic murmur - GI/Abdominal GI/Abdominal exam: Present: normal bowel sounds, soft, no peritoneal signs. Absent: distended, tenderness - Extremities Exam Extremities exam: Present: warm, radial pulses palpable and symmetrical. Absent : calf tenderness, cyanotic, pedal edema - Neurological Exam Neurological exam: Present: CN II-XII intact, oriented X3, no focal deficits. Absent: pronater drift, facial droop, speech deficit - Skin Skin exam: Present: dry, intact - Patient Status Disposition: Home, Self-Care Condition: Good Functional capacity at discharge: independent ambulation Overall status at discharge: patient is back to baseline - Discharge Instructions Instructions: Iron Rich Diet (DC), Iron Deficiency Anemia (DC), Gluten-Free Diet (DC) Follow Up With: Elvi Vazquez [Primary Care Provider] - (He is call for follow-up appointment within 1 week) Katerina Samaniego MD [Partnered Physician] - (Please call the office if you have not heard from them within 2-3 weeks for capsule study) Yair Duncan [Non-Partnered Physician] - 11/27/17 9:00 am () - Diet and Activity Diet: other (Gluten-free diet)
[2017-11-14 16:36] VITALS: BP 113/63
[2017-11-14 17:20] LABS: Hematocrit 33.2 % (37.5-50.1)
[2017-11-17 08:39] LABS: Tissue Transglutaminase IgA 1 U/mL (0-3)
== END 2017-11-14 19:00 | disposition home or self-care (01) | DRG 392 ==
LOC: 3BNU 20:18
PROVIDERS: ADMIT Nurse Practitioner Family; ATTEND Nurse Practitioner Family
PROC: ENDOEBX (2017-11-14 14:00)